=== PATIENT | male | born 1980 | race Caucasian/White ===

== ENCOUNTER → 2020-01-12 | Outpatient (CLI) | payer OTHER ==
--- NOTE | 2020-01-12 14:50 | KCIC ---
Study: CR LUMBAR SPINE MIN 4V Indication: Lower extremity paresthesias. Comparison: None. Findings: 5 nonrib-bearing lumbar vertebral elements. Normal lumbar lordosis. No disc space collapse. The pars interarticularis appear intact. No advanced facet degeneration. Unremarkable transverse and spinous processes. The partially assessed pelvic osseous structures are grossly intact. Impression: No acute osseous abnormality or advanced degenerative changes throughout the lumbar spine. Electronically signed by: SHANIKA RESENDIZ MD (01/12/2020 2:47 PM) [id number]
== END | disposition home or self-care (01) ==
LOC: KCIC 13:41
PROVIDERS: ATTEND Family Medicine
DX: R20.0 Anesthesia of skin (principal); R20.2 Paresthesia of skin
CPT/HCPCS: 72110